=== PATIENT | male | born 1970 | race Two or more races ===

== ENCOUNTER 2023-12-10 09:54 | Day surgery (SDC) | payer OTHER ==
[2023-12-10] VITALS (7 sets, daily range): BP systolic 166–193; BP diastolic 102–135; PULSE 92–98; RESP 11–20; TEMP 98.1; O2SAT 92–94
[~2023-12-10] VITALS: Ht 170.2 cm; Wt 141.1 kg
[~2023-12-10 09:54] MED LIST: ASPI-543 PO; FLUT1AER17 IN; ISOS1TAB28 PO; LOSA-533 PO; NITR0.4S29 SL
[2023-12-10] MEDS ORDERED: LIDOCAINE 2%HCL (LOCAL ANESTH.) INJ 20ML MDV ONE (12:17)
[2023-12-10] MEDS ORDERED: HEPARIN SODIUM (PORCINE) 5000 UNITS/ML 1ML VIAL ONE (12:29)
[2023-12-10] MEDS ORDERED: VERAPAMIL 2.5MG/ML INJ 2ML VIAL IV ONE (12:29)
[2023-12-10] MEDS ORDERED: ANGIOMAX 250 MG VIAL IV ONE (12:29)
[2023-12-10] MEDS ORDERED: SODIUM CHL 0.9% 0 ML ONE (12:30)
[2023-12-10] MEDS ORDERED: MIDAZOLAM HCL 2MG/2ML 2ml VIAL (1mg/ml) ONE (12:30)
[2023-12-10] MEDS ORDERED: fentaNYL CITRATE 100 MCG/2 ML VL ONE (12:30)
[2023-12-10] MEDS ORDERED: IODIXANOL 320MG/ML 100ML BTL IV ONE (12:32)
[2023-12-10] MEDS: cloNIDine HCL 0.1 MG TAB ONE (13:10)
[2023-12-10] MEDS ORDERED: cloNIDine HCL 0.1 MG TAB PO ONE (13:15)
== END 2023-12-10 14:57 | disposition home or self-care (01) ==
LOC: EDSEX 09:54 → CATH 09:54
PROVIDERS: ATTEND Internal Medicine
DX: I25.119 Atherosclerotic heart disease of native coronary artery with unspecified angina pectoris (principal); I10 Essential (primary) hypertension; Z79.82 Long term (current) use of aspirin; Z86.16 Personal history of COVID-19
CPT/HCPCS: 93458; C1887; C1894; J1644; J2250; J3010; Q9967; 99152